=== PATIENT | male | born 1955 | race Hispanic/Latino ===

== ENCOUNTER 2018-04-30 09:29 | Emergency (ER) | payer MEDICAID ==
[2018-04-30 09:37] VITALS: BMI 29.9
[2018-04-30] MEDS ORDERED: Sodium Chloride 0.9% 1,000 ML IV STA (09:46)
--- NOTE | 2018-04-30 09:55 | ED PDOC ---
Arrival/HPI - General Time Seen by Provider: 04/30/18 09:32 Historian: Patient - History of Present Illness Narrative History of Present Illness (Text): 04/30/18 09:48 62yo male with pmhx of Diabetes, hypertension, Neurogenic bladder and fecal incontinence secondary to back surgery (February 2017). Patient also reports right arm and leg weakness secondary to the surgery. He is currently bed bound and undergoing physical therapy. States he came to ED today because his started shaking this morning and unable to eat his breakfast because his arm was shaking. Reports history of shakes in the past, but it was worse today. Notes that the shaking is currently resolved. He denies any current somatic or psychological complaint at this time. Past Medical History - Provider Review Nursing Documentation Reviewed: Yes - Cardiac Hx Pacemaker: No - Pulmonary Hx Asthma: Yes (as a child) - Hematological/Oncological Hx Blood Transfusions: No Hx Blood Transfusion Reaction: No - Musculoskeletal/Rheumatological Hx Musculoskeletal Disorders: No - Genitourinary/Gynecological Hx Genitourinary Disorders: Yes (nephrolithiasis) - Psychiatric Hx Emotional Abuse: No Hx Physical Abuse: No Hx Substance Use: No - Anesthesia Hx Anesthesia Reactions: Yes Hx Malignant Hyperthermia: No - Suicidal Assessment Feels Threatened In Home Enviroment: No Family/Social History - Physician Review Nursing Documentation Reviewed: Yes Family/Social History: Unknown Family HX Smoking Status: Current Some Days Smoker Hx Alcohol Use: Yes (2 drinks a day) Hx Substance Use: No Hx Substance Use Treatment: No Allergies/Home Meds Allergies/Adverse Reactions: Allergies amoxicillin Allergy (Intermediate, Verified 04/30/18 09:44) RASH Review of Systems - Physician Review All systems were reviewed & negative as marked: Yes - Review of Systems Constitutional: Normal Eyes: Normal ENT: Normal Respiratory: Normal Cardiovascular: Normal Gastrointestinal: Normal Genitourinary Male: Normal Musculoskeletal: Normal Skin: Normal Neurological: Other (Shaking right arm) Endocrine: Normal Hemo/Lymphatic: Normal Psychiatric: Normal Physical Exam Vital Signs Reviewed: Yes Vital Signs Temp Pulse Resp BP Pulse Ox 04/30/18 19:09 98.1 F 81 17 149/70 98 04/30/18 16:30 98.9 F 82 18 150/70 98 04/30/18 14:14 80 19 163/75 H 97 04/30/18 11:11 74 18 156/85 H 98 04/30/18 09:36 98.7 F 69 18 134/81 99 Temperature: Afebrile Blood Pressure: Normal Pulse: Regular Respiratory Rate: Normal Appearance: Positive for: Well-Appearing, Non-Toxic, Comfortable Pain Distress: None Mental Status: Positive for: Alert and Oriented X 3 Finger Stick Blood Glucose: 232 - Systems Exam Head: Present: Atraumatic, Normocephalic Pupils: Present: PERRL Extroacular Muscles: Present: EOMI Conjunctiva: Present: Normal Mouth: Present: Moist Mucous Membranes Neck: Present: Normal Range of Motion Respiratory/Chest: Present: Clear to Auscultation, Good Air Exchange. No: Respiratory Distress, Accessory Muscle Use Cardiovascular: Present: Regular Rate and Rhythm, Normal S1, S2. No: Murmurs Abdomen: No: Tenderness, Distention, Peritoneal Signs Back: Present: Normal Inspection Upper Extremity: Present: Normal Inspection. No: Cyanosis, Edema Lower Extremity: Present: Normal Inspection. No: Edema Neurological: Present: GCS=15, CN II-XII Intact, Speech Normal, Normal Sensory Function, Normal Cerebellar Funct, Memory Normal, Normal 2Pt Descrimination. No : Motor Func Grossly Intact (Right leg weakness - chronic from back surgery) Skin: Present: Warm, Dry, Normal Color. No: Rashes Psychiatric: Present: Alert, Oriented x 3, Normal Insight, Normal Concentration Medical Decision Making ED Course and Treatment: 04/30/18 09:57 62yo male bib EMS for right arm shakiness. Right leg weakness was noted, which is chronic for the patient secondary to his back surgery. Leach catheter with a bag noted in place. Pt reported that he just finished taking abx yesterday for UTI. He was otherwise neurologically intact. Labs EKG UA FS Will reassess EKG NSR with LAD @ 69bpm. NSTEMI 04/30/18 19:10 Pt have UTI and was treated with Cipro, he is allergic to amoxicillin. He also have renal insufficiency. His lab is compatible to his previous lab and he admitted knowing he have renal insufficiency. His FS increased after eating in ED. He also noted that he did not take his insulin today. Insulin was given in ED and his BS improved slightly in ED. Result was DW the pt and he was DC home. He have a urologist and was referred to his urologist. His Leach was changed in ED. He was advised to take his medication at home as directed. - Lab Interpretations Lab Results: 04/30/18 10:30 04/30/18 10:30 Lab Results 04/30/18 17:18: POC Glucose (mg/dL) 389 H 04/30/18 16:26: POC Glucose (mg/dL) 415 H* 04/30/18 13:30: Urine Color Light yellow, Urine Appearance Cloudy, Urine pH 6.0 , Ur Specific [place] 1.025, Urine Protein >=300 H, Urine Glucose (UA) Negative , Urine Ketones Negative, Urine Blood Moderate H, Urine Nitrate Negative, Urine Bilirubin Negative, Urine Urobilinogen 0.2, Ur Leukocyte Esterase Moderate H, Urine RBC Tntc, Urine WBC Tntc, Ur Epithelial Cells None, Urine Bacteria Many 04/30/18 11:34: Urine Color Light yellow, Urine Appearance Cloudy, Urine pH 6.0 , Ur Specific [place] 1.025, Urine Protein 100 H, Urine Glucose (UA) Negative, Urine Ketones Negative, Urine Blood Moderate H, Urine Nitrate Negative, Urine Bilirubin Negative, Urine Urobilinogen 0.2, Ur Leukocyte Esterase Large H, Urine RBC Tntc, Urine WBC Tntc, Ur Epithelial Cells None, Urine Bacteria Many 04/30/18 10:30: Sodium 142, Potassium 3.8, Chloride 106, Carbon Dioxide 26, Anion Gap 15, BUN 68 H, Creatinine 2.3 H, Est GFR ( Amer) 35, Est GFR ( Non-Af Amer) 29, Random Glucose 257 H, Calcium 9.3, Total Bilirubin 0.5, AST 33 , ALT 16, Alkaline Phosphatase 154 H, Lactate Dehydrogenase 455, Total Creatine Kinase 64, Troponin I 0.05, Total Protein 7.1, Albumin 3.8, Globulin 3.3, Albumin/Globulin Ratio 1.2 04/30/18 10:30: PT 14.0 H, INR 1.21, APTT 37.2 H 04/30/18 10:30: WBC 8.4, RBC 4.07, Hgb 12.0 L, Hct 36.1 L, MCV 88.7, MCH 29.5, MCHC 33.2, RDW 13.6, Plt Count 219, MPV 8.9, Gran % 75.5 H, Lymph % (Auto) 12.6 L, [place] % (Auto) 4.4, Eos % (Auto) 7.0 H, Baso % (Auto) 0.5, Gran # 6.33, Lymph # (Auto) 1.1 L, [place] # (Auto) 0.4, Eos # (Auto) 0.6, Baso # (Auto) 0.04 04/30/18 09:43: POC Glucose (mg/dL) 232 H - Medication Orders Current Medication Orders: Discontinued Medications Ciprofloxacin (Cipro) 500 mg PO ONCE STA PRN Reason: Protocol Stop: 04/30/18 14:33 Last Admin: 04/30/18 14:43 Dose: 500 mg Sodium Chloride (Sodium Chloride 0.9%) 1,000 mls @ 999 mls/hr IV .Q1H1M STA Stop: 04/30/18 10:46 Last Admin: 04/30/18 10:03 Dose: 999 mls/hr eMAR Start Stop Document 04/30/18 10:03 [email or web address] (Rec: 04/30/18 10:04 DEDRICK [id number]) Intravenous Solution Start Date 04/30/18 Start Time 10:04 End Date 04/30/18 End time 11:03 Total Infusion Time 59 Insulin Human Regular (Humulin R) 8 units IVP ONCE STA Stop: 04/30/18 16:33 Last Admin: 04/30/18 16:45 Dose: 8 units MAR Blood Glucose Document 04/30/18 16:45 [email or web address] (Rec: 04/30/18 16:45 [facility] [id number]) Blood Glucose Finger Stick Blood Glucose (70-120) 416 IVP Administration Document 04/30/18 16:45 [email or web address] (Rec: 04/30/18 16:45 [facility] [id number]) Charges for Administration # of IVP Administrations 1 Ondansetron HCl (Zofran Inj) 4 mg IVP STAT STA Stop: 04/30/18 13:22 Last Admin: 04/30/18 14:14 Dose: Not Given Non-Admin Reason: Patient Refused Disposition/Present on Arrival - Present on Arrival Any Indicators Present on Arrival: No History of DVT/PE: No History of Uncontrolled Diabetes: No Urinary Catheter: No History Surgical Site Infection Following: None - Disposition Have Diagnosis and Disposition been Completed?: Yes Diagnosis: UTI (urinary tract infection), Hyperglycemia Disposition: HOME/ ROUTINE Disposition Time: 14:55 Patient Plan: Discharge Patient Problems: Current Active Problems Problem Status Onset UTI (urinary tract infection) Acute Condition: STABLE Discharge Instructions (ExitCare): Urinary Tract Infections in Adults Additional Instructions: Follow up with your Doctor/Urologist Return to ED for any new or worsening symptoms Prescriptions: Ciprofloxacin [Cipro] 500 mg PO BID #14 tab Referrals: Loco Atkinson MD [Primary Care Provider] - Follow up with primary
[2018-04-30 10:45] LABS: ALB/GLOB RATIO 1.2 (1.1-1.8); ALBUMIN 3.8 g/dL (3.0-4.8); CALCIUM 9.3 mg/dL (8.4-10.5)
[2018-04-30 10:51] LABS: BASO # 0.04 K/mm3 (0.0-2.0); BASO % 0.5 % (0.0-3.0); EOS # 0.6 (0.0-0.7); GRAN # 6.33 (1.4-6.5); GRAN % 75.5 % (50.0-68.0); LYMPH # 1.1 (1.2-3.4); LYMPH % 12.6 % (22.0-35.0); MEAN CELL VOLUME 88.7 fl (80.0-105.0); MEAN CORPUSCULAR HEMOGLOBIN 29.5 pg (25.0-35.0); MEAN CORPUSCULAR HGB CONC 33.2 g/dl (31.0-37.0); MEAN PLATELET VOLUME 8.9 fl (7.0-11.0); MONO # 0.4 (0.1-0.6); MONO % 4.4 % (1.0-6.0); RBC 4.07 10^6/uL (3.5-6.1); RED CELL DISTRIBUTION WIDTH 13.6 % (11.5-14.5); WHITE BLOOD COUNT 8.4 10^3/ul (4.5-11.0)
[2018-04-30 10:55] LABS: INR 1.21; PARTIAL THROMBOPLASTIN TIME 37.2 Seconds (25.1-36.5)
[2018-04-30 10:57] LABS: TROPONIN I 0.05 ng/mL
[2018-04-30 11:42] LABS: URINE BILIRUBIN NEGATIVE (NEGATIVE); URINE BLOOD MODERATE (NEGATIVE); URINE GLUCOSE (UA) NEGATIVE (NEGATIVE); URINE LEUKOCYTE ESTERASE LARGE Leu/uL (NEGATIVE); URINE PROTEIN 100 mg/dL (<30 mg/dL); URINE UROBILINOGEN 0.2 E.U./dL (<1 E.U./dL)
[2018-04-30 11:47] LABS: URINE APPEARANCE CLOUDY (CLEAR); URINE COLOR LIGHT YELLOW (YELLOW)
[2018-04-30 12:07] LABS: URINE RBC TNTC /hpf (0-2); URINE WBC TNTC /hpf (0-6)
[2018-04-30 12:08] LABS: URINE BACTERIA MANY (NEG)
--- NOTE | 2018-04-30 12:16 | CARD ---
APPROVED REPORT Date of service: 04/30/2018 EKG Measurement Heart [id number] <Conclusion> Poor Quality EKG Normal sinus rhythm Left axis deviation Inferior infarct, age Probably Old. Abnormal ECG
[2018-04-30 13:45] LABS: URINE APPEARANCE CLOUDY (CLEAR); URINE BILIRUBIN NEGATIVE (NEGATIVE); URINE COLOR LIGHT YELLOW (YELLOW); URINE GLUCOSE (UA) NEGATIVE (NEGATIVE)
[2018-04-30 13:46] LABS: URINE BLOOD MODERATE (NEGATIVE); URINE LEUKOCYTE ESTERASE MODERATE Leu/uL (NEGATIVE); URINE PROTEIN >=300 mg/dL (<30 mg/dL); URINE UROBILINOGEN 0.2 E.U./dL (<1 E.U./dL)
[2018-04-30 13:54] LABS: URINE RBC TNTC /hpf (0-2); URINE WBC TNTC /hpf (0-6)
[2018-04-30 13:55] LABS: URINE BACTERIA MANY (NEG)
[2018-04-30] MEDS ORDERED: Tmp-Smz 800 mg-160 mg DS Tab PO STA (14:31)
[2018-04-30] MEDS ORDERED: Insulin Regular 1 UNITS/0.01 ML ML IVP STA (16:32)
[2018-04-30 19:10] VITALS: BP 149/70; PULSE 81; TEMP 98.1
[2018-04-30 19:11] VITALS: RESP 18; O2SAT 97
== END 2018-04-30 19:11 | disposition home or self-care (01) ==
LOC: ED 09:29
DX: N39.0 Urinary tract infection, site not specified (principal); E11.65 Type 2 diabetes mellitus with hyperglycemia; I10 Essential (primary) hypertension; Z74.01 Bed confinement status; F17.210 Nicotine dependence, cigarettes, uncomplicated
CPT/HCPCS: 80053; 81001; 81003; 82550; 82948; 83615; 84484; 85025; 85610; 85730; 87086; 93005; 96361; 96374; 99285; J7030